=== PATIENT | male | born 1990 | race Caucasian/White ===

== ENCOUNTER 2017-04-03 18:18 | Emergency (ER) | payer MEDICAID, OTHER ==
[2017-04-03] MEDS ORDERED: CEPHALEXIN 500 MG CAP PO ONE (18:44)
--- NOTE | 2017-04-03 18:45 | EDPHY ---
H & P Stated Complaint: NONTRAUMATIC L KNEE PAIN/SWELLING Source: Patient Exam Limitations: No limitations - Personal History Current Tetanus/Diphtheria Vaccine: Yes - Medical/Surgical History Hx Asthma: No Hx Chronic Respiratory Disease: No Hx Diabetes: No Hx Cardiac Disease: No Hx Renal Disease: No Hx Cirrhosis: No Hx Alcoholism: No Hx HIV/AIDS: No Hx Splenectomy or Spleen Trauma: No Other PMH: L KNEE BURSECTOMY - Social History Smoking Status: Never smoked Time Seen by Provider: 04/03/17 18:44 HPI/ROS: HPI: This is a 27-year-old male presents with Chief Complaint:NONTRAUMATIC L KNEE PAIN/SWELLING Location: Left anterior knee Quality: Pain and swelling Duration: 3-5 hours Signs and Symptoms: No bleeding, no radiation, no numbness, no weakness, no tingling, no incontinence, no decreased range of motion Timing: Acute Severity: Moderate Context: 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 Today he woke up from a nap and felt sudden onset of pain in his anterior barakat with 1 pinpoint area that is tender to palpation. He reports any recent injury/overuse. He is greatly concerned about infection. Denies fever/paresthesias/warmth/drainage. He reports that he is ambulatory and has full range of motion with no pain. He only has pain when he touches a particular area. Patient has a history of left knee bursectomy. Modifying Factors: None Comment: ROS: see HPI Constitutional: No fever, no chills, no weight loss Eyes: No blurred vision Respiratory: No shortness of breath, no cough Cardiovascular: No chest pain Gastrointestinal: No nausea, no vomiting no diarrhea Genitourinary: No dysuria Extremities: No myalgias Neurologic: No weakness, no numbness Skin: No rashes Hematologic: No bruising, no bleeding MEDICAL/SURGICAL/SOCIAL HISTORY: Medical history: Generally healthy. Does not take any regular medications. 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 CONSTITUTIONAL: awake and alert, no obvious distress HEENT: Atraumatic and normocephalic, PERRL, EOMI. Tympanic membranes clear. Oropharynx clear, no exudate and moist pink mucosa. Airway patent. No lymphadenopathy. No meningismus. Cardiovascular: Normal S1/S2, regular rate, regular rhythm, without murmur rub or gallop. PULMONARY/CHEST: Symmetrical and nontender. Clear to auscultation bilaterally. Good air movement. No accessory muscle usage. ABDOMEN: Soft, nondistended, nontender, no rebound, no guarding, no peritoneal signs, no masses or organomegaly. No CVAT. EXTREMITIES: 2/2 pulses, LEFT KNEE: no effusion, no medial and lateral joint line tenderness, full extension to 180, flexion to 120, no pain with varus and valgus exam. Anterior tibia prominence noted with tenderness to palpation and fullness in the area. no deformities, no clubbing, no cyanosis or edema. NEUROLOGICAL: no focal neuro deficits. GCS 15. SKIN: Warm and dry, no erythema. no rash. Good capillary refill. (Tammi Soares) Constitutional: Initial Vital Signs Temperature (C) 36.5 C 04/03/17 18:21 Heart Rate 66 04/03/17 18:21 Respiratory Rate 17 04/03/17 18:21 Blood Pressure 133/81 H 04/03/17 18:21 O2 Sat (%) 94 04/03/17 18:21 O2 Delivery Mode Room Air Allergies/Adverse Reactions: No Known Allergies Allergy (Verified 04/03/17 18:21) Home Medications: Medication Instructions Recorded Cephalexin [Keflex (*)] 500 mg PO TID #15 cap 04/03/17 Medical Decision Making - Diagnostics Imaging Results: Imaging Impressions Knee X-Ray 04/03/17 18:43 Impression: No bony abnormality of the left knee. ED Course/Re-evaluation: The patient was evaluated and managed by the physician orthotics assistant. I have reviewed this chart and I agree with the findings and plan of care as documented , as indicated by my signature. I am the secondary supervising physician. ( Mary Delacruz) X-rays and oral medication ordered No signs of neurovascular compromise/tenting of skin/compartment syndrome/ extremities and joints examined above and below area of concern and are neurovascularly intact. No fluctuance or signs of septic arthritis/jerry cellulitis Given p.o. 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 (Tammi Soares) - Data Points Medications Given: Discontinued Medications Cephalexin HCl (Keflex) 500 mg PO EDNOW ONE PRN Reason: Protocol Stop: 04/03/17 18:45 Last Admin: 04/03/17 18:47 Dose: 500 mg Departure - Departure Disposition: Home, Routine, Self-Care Clinical Impression: Left anterior knee pain Condition: Good Instructions: [place]-Schlatter Disease (ED), RICE Therapy (ED) Additional Instructions: Keep knee and immobilizer and use crutches until pain free. Take ibuprofen 600 mg every 6-8 hours with food as needed for pain and inflammation. Apply ice for 30 minutes at a time; 2-3 times per day for the next 1-2 days. Follow up with Orthopedics in 5-7 days at which time they will evaluate and recommend with you if conservative management versus surgery is indicated. The x-rays obtained in the emergency department today demonstrate no evidence of an obvious fracture. Sometimes fractures are not obvious on the initial set of x-rays performed in the ED. For this reason, you should have repeat x-rays performed in 7-10 days if you are having any pain exclude the possibility of an occult fracture. Referrals: Valdez Dozier MD [Medical Doctor] - As per Instructions Prescriptions: Cephalexin [Keflex (*)] 500 mg PO TID #15 cap
[2017-04-03 19:52] VITALS: BP 135/74; PULSE 61; RESP 16; TEMP 98.8; O2SAT 95
== END 2017-04-03 19:50 | disposition home or self-care (01) ==
DX: M25.562 Pain in left knee (principal)